=== PATIENT | male | born 1950 | race Hispanic/Latino ===

== ENCOUNTER 2023-10-25 08:02 | Day surgery (SDC) | payer OTHER ==
[2023-10-25] VITALS (18 sets, daily range): BP systolic 108–140; BP diastolic 53–77; PULSE 55–68; RESP 15–20
[~2023-10-25] VITALS: Ht 172.7 cm; Wt 103.4 kg
[~2023-10-25 08:02] MED LIST: 0.9%NACL 1000ML 1,000 ML IV ONE
[2023-10-25] MEDS ORDERED: HYDR50TA37 PO (08:39)
[2023-10-25] MEDS ORDERED: HYDR12.54 PO (08:39)
[2023-10-25] MEDS ORDERED: BUME0.5T4 PO (08:39)
[2023-10-25] MEDS ORDERED: NIFE-40 PO (08:39)
[2023-10-25] MEDS ORDERED: DOCU100C33 PO (08:39)
[2023-10-25] MEDS ORDERED: TELM80TA10 PO (08:39)
[2023-10-25] MEDS ORDERED: SERT-439 PO (08:39)
[2023-10-25] MEDS ORDERED: LIDOCAINE HCL 1% 20 ML VIAL ONE (10:53)
[2023-10-25] MEDS ORDERED: PROPOFOL 10 MG/ML 20ML VIAL IV ONE ×2 (10:53)
== END 2023-10-25 12:32 | disposition home or self-care (01) ==
LOC: DAH 08:02 → SUH 08:02
PROVIDERS: ATTEND Internal Medicine
DX: R93.3 Abnormal findings on diagnostic imaging of other parts of digestive tract (principal); K86.2 Cyst of pancreas; K29.50 Unspecified chronic gastritis without bleeding; I10 Essential (primary) hypertension; E66.01 Morbid (severe) obesity due to excess calories; D18.03 Hemangioma of intra-abdominal structures; K57.90 Diverticulosis of intestine, part unspecified, without perforation or abscess without bleeding; K92.1 Melena; I25.10 Atherosclerotic heart disease of native coronary artery without angina pectoris; E66.9 Obesity, unspecified; Z86.010 Personal history of colon polyps; Z68.34 Body mass index [BMI] 34.0-34.9, adult; Z98.890 Other specified postprocedural states
CPT/HCPCS: 43237; J7030 ×2; J2704; A4620; A4215 ×3; A4223; A7002; A4222; A4221; A4663; A4606; 43259; J3490